=== PATIENT | female | born 1965 | race American Indian/Alaskan Native ===

== ENCOUNTER 2018-04-23 09:35 | Emergency (ER) | payer OTHER ==
[2018-04-23 09:59] VITALS: BP 136/85
--- NOTE | 2018-04-23 10:12 | Emergency Department Report ---
Blank Doc - Documentation Documentation: Patient is a 53-year-old female who was walking up some stairs at her home 2 hours ago and tripped and fell. Patient hit the top of her head on a brick wall. Patient states she was dazed but did not lose consciousness. Patient has 6 out of 10 headache at the area of abrasion as well as at the top of the head. Patient denies any nausea vomiting or ataxia. Patient is a liquids secondary to history of a pulmonary embolus. Because of the history of being on [employer] and the fact that she hit her head on a brick wa CT head will be done to rule out skull fracture and intracranial bleeding ll
--- NOTE | 2018-04-23 10:50 | Emergency Department Report ---
Head Injury w/o Laceration - HPI Chief Complaint: Fall Stated Complaint: HEAD INJURY Time Seen by Provider: 04/23/18 10:07 Mechanism: Fall ED General PMH - Social History Smoking Status: Current Every Day Smoker Head Injury W/O Lac Exam - Exam General: Vital signs noted. No distress. Alert and acting appropriately. ED Disposition Condition: Stable Referrals: KAUSHIK RIOS MD [Primary Care Provider] - 3-5 Days
--- NOTE | 2018-04-23 10:55 | Cat Scan Report ---
CT HEAD WITHOUT CONTRAST: HISTORY: Closed head injury on eliquis. TECHNIQUE: Sequential 2.5mm CT images. COMPARISON: none. FINDINGS: Cerebral Parenchyma: Within normal limits. Cerebellum: Within normal limits. Brainstem: Within normal limits. Ventricles: Normal. Sella: Normal. Extra-axial spaces: Normal. Basal Cisterns: Normal. Intracranial Hemorrhage: None. Midline Shift: None. Calvarium: Normal. Sinuses: Normal. Mastoid Air Cells: Normal. Visualized Orbits: Normal. IMPRESSION: Cranial CT scan within normal limits.
--- NOTE | 2018-04-23 11:20 | Emergency Department Report ---
ED Fall HPI - General Chief Complaint: Fall Stated Complaint: HEAD INJURY Time Seen by Provider: 04/23/18 10:07 Source: patient Mode of arrival: Ambulatory - History of Present Illness Initial Comments: This is a 53-year-old female who presents with his abrasions for here from falling 2 hours ago at home. Patient reports walking 3 stairs outside of home and tripped and hit her head on the bricks on the side of the house. She was able to stop bleeding prior to common hand. She is currently taking a eliquis secondary pulmonary embolus. Patient hit the top of her head on a brick wall. She reports feeling dazed but did not lose consciousness. Patient has headache at the area of abrasion as well as aching to posterior neck. Patient denies loss of consciousness, nausea/vomiting, chest pain, shortness of breath, or ataxia. MD Complaint: fall -: hour(s) (2 hours ago) Fall From: standing When Fall Occurred: 1-3 hours [employer] Fall Witnessed: yes, by family Place Fall Occurred: home Loss of Consciousness: none Prolonged Down Time?: no Symptoms Prior to Fall: none Location: head (midline abrasion to forehead) Severity: moderate Severity scale (0 -10): 2 Quality: aching Context: tripped/slipped Associated Symptoms: headache, neck pain (posterior midline neck pain). denies : numbness, weakness, chest paint, shortness of breath, abdominal pain, hematuria, unable to walk, lightheaded, vertigo, confusion - Related Data Home Medications Medication Instructions Recorded Confirmed Last Taken Folic Acid [Folvite] 1 mg PO QDAY 07/07/13 09/06/15 09/06/15 Omeprazole [Prilosec] 20 mg PO QDAY 07/07/13 09/06/15 09/06/15 amLODIPine [Norvasc] 5 mg PO DAILY 07/07/13 09/06/15 09/06/15 Atenolol/Chlorthalidone [Tenoretic 1 tab PO QDAY 09/06/15 09/06/15 09/06/15 100-25] Diclofenac Potassium 50 mg PO DAILY 09/06/15 09/06/15 09/06/15 Previous Rx's Medication Instructions Recorded Last Taken Type Ibuprofen [Motrin] 800 mg PO Q8HR PRN #15 tablet 07/15/15 09/04/15 Rx HYDROcodone/APAP 5-325 [Wayne 1 each PO Q4HR PRN #20 tablet 09/06/15 Unknown Rx 5/325] Allergies Allergy/AdvReac Type Severity Reaction Status Date / Time lisinopril AdvReac Anaphylaxis Verified 07/15/15 17:04 ED Review of Systems ROS: Stated complaint: HEAD INJURY Other details as noted in HPI Constitutional: denies: chills, fever Respiratory: denies: cough, shortness of breath, wheezing Cardiovascular: denies: chest pain, palpitations Gastrointestinal: denies: abdominal pain, nausea, diarrhea Skin: lesions (abrasion to midline of forehead). denies: rash Neurological: headache. denies: weakness, numbness, paresthesias Psychiatric: as per HPI ED Past Medical Hx - Past Medical History Previous Medical History?: Yes Hx Hypertension: Yes Hx GERD: Yes Additional medical history: Anemia - Social History Smoking Status: Current Every Day Smoker Substance Use Type: Alcohol, Prescribed - Medications Home Medications: Home Medications Medication Instructions Recorded Confirmed Last Taken Type Folic Acid [Folvite] 1 mg PO QDAY 07/07/13 09/06/15 09/06/15 History Omeprazole [Prilosec] 20 mg PO QDAY 07/07/13 09/06/15 09/06/15 History amLODIPine [Norvasc] 5 mg PO DAILY 07/07/13 09/06/15 09/06/15 History Ibuprofen [Motrin] 800 mg PO Q8HR PRN #15 tablet 07/15/15 09/06/15 09/04/15 Rx Atenolol/Chlorthalidone [Tenoretic 1 tab PO QDAY 09/06/15 09/06/15 09/06/15 History 100-25] Diclofenac Potassium 50 mg PO DAILY 09/06/15 09/06/15 09/06/15 History HYDROcodone/APAP 5-325 [Wayne 1 each PO Q4HR PRN #20 tablet 09/06/15 Unknown Rx 5/325] ED Physical Exam - General Limitations: No Limitations General appearance: alert, in no apparent distress - Head Head exam: Present: normocephalic. Absent: other (2 cm abrasion to forehead, erythematous, no swelling, no active bleeding, no surrounding cellulitis) - Neck Neck exam: Present: normal inspection, full ROM. Absent: tenderness, meningismus, lymphadenopathy - Respiratory Respiratory exam: Present: normal lung sounds bilaterally. Absent: respiratory distress - Cardiovascular Cardiovascular Exam: Present: regular rate, normal rhythm. Absent: systolic murmur, diastolic murmur, rubs, gallop - GI/Abdominal GI/Abdominal exam: Present: soft, normal bowel sounds. Absent: organomegaly, mass - Neurological Exam Neurological exam: Present: alert, oriented X3, normal gait - Psychiatric Psychiatric exam: Present: normal affect, normal mood - Skin Skin exam: Present: warm, dry, normal color. Absent: intact, rash ED Course Vital Signs 04/23/18 04/23/18 09:56 09:58 Temperature 98.3 F 98.3 F Pulse Rate 106 H 106 H Respiratory 18 18 Rate Blood Pressure 136/85 136/85 O2 Sat by Pulse 98 98 Oximetry Vital Signs 04/23/18 04/23/18 04/23/18 09:56 09:58 11:37 Temperature 98.3 F 98.3 F Pulse Rate 106 H 106 H 84 Respiratory 18 18 Rate Blood Pressure 136/85 136/85 O2 Sat by Pulse 98 98 Oximetry ED Medical Decision Making - Radiology Data Radiology results: report reviewed CT HEAD WITHOUT CONTRAST: HISTORY: Closed head injury on eliquis. TECHNIQUE: Sequential 2.5mm CT images. COMPARISON: none. FINDINGS: Cerebral Parenchyma: Within normal limits. Cerebellum: Within normal limits. Brainstem: Within normal limits. Ventricles: Normal. Sella: Normal. Extra-axial spaces: Normal. Basal Cisterns: Normal. Intracranial Hemorrhage: None. Midline Shift: None. Calvarium: Normal. Sinuses: Normal. Mastoid Air Cells: Normal. Visualized Orbits: Normal. IMPRESSION: Cranial CT scan within normal limits. - Medical Decision Making This is a 53 y.o. female presents with abrasions of forehead for fall 2 hours ago. Patient was examined by me and Dr. Hawk. Heart rate slightly elevated on arrival, 3 evaluated normal prior to discharge. Patient in no acute distress. CT of head obtained, patient is currently taking eliquis secondary pulmonary embolus. Scan read by radiologist, no acute findings. Patient informed of results. Instructed to apply triple antibiotic ointment with zinc to wound twice a day. Take [id number] NSAIDs for pain. Plan discussed with patient to discharge home and treat outpatient. Patient discharged home in stable condition. Follow up with PCP in 2-3 days. Critical care attestation.: If time is entered above; I have spent that time in minutes in the direct care of this critically ill patient, excluding procedure time. ED Disposition Clinical Impression: Contusion of forehead Qualifiers: Encounter type: initial encounter Qualified Code(s): S00.83XA - Contusion of other part of head, initial encounter Fall Qualifiers: Encounter type: initial encounter Qualified Code(s): W19.XXXA - Unspecified fall, initial encounter Disposition: TO HOME OR SELFCARE Is pt being admited?: No Does the pt Need Aspirin: No Condition: Stable Instructions: Contusion in Adults (ED), Scalp Contusion in Adults (ED), Fall Prevention (ED) Additional Instructions: Keep wound clean with soap and water. Apply triple antibiotic ointment with the to wound twice a day. Repeat introduce activities slowly to daily routine. Follow-up with her primary care provider in 2-3 days. Return to ER if nausea or vomiting, chest pain, and lightheadedness. Referrals: KAUSHIK RIOS MD [Primary Care Provider] - 3-5 Days Forms: Work/School Release Form(ED) Time of Disposition: 11:30 Print Language: SLOVENIAN
== END 2018-04-23 11:38 | disposition home or self-care (01) ==
LOC: ED 09:35
DX: S00.83XA Contusion of other part of head, initial encounter (principal); M54.2 Cervicalgia; I10 Essential (primary) hypertension; K21.9 Gastro-esophageal reflux disease without esophagitis; F17.200 Nicotine dependence, unspecified, uncomplicated; Z88.8 Allergy status to other drugs, medicaments and biological substances; W10.9XXA Fall (on) (from) unspecified stairs and steps, initial encounter; Y93.89 Activity, other specified; Y92.89 Other specified places as the place of occurrence of the external cause; Y99.8 Other external cause status
CPT/HCPCS: 70450; 99283